=== PATIENT | female | born 1940 | race Two or more races ===

== ENCOUNTER 2020-12-21 17:58 | Emergency (ER) | payer MEDICARE ==
[~2020-12-21] VITALS: Ht 162.6 cm; Wt 77.7 kg
[2020-12-21] MEDS ORDERED: LIDOcaine 5% patch TP ONE (21:10)
[2020-12-21] MEDS ORDERED: ketorolac trometh inj. 60 MG/2 ML VIAL IM ONE (21:10)
[2020-12-21] MEDS ORDERED: bisacodyl 5mg tablet.DR PO ONE (21:15)
[2020-12-21 21:18] LABS: CLARITY,URINE SLIGHTLY CLOUDY (Clear); COLOR,URINE YELLOW (Yellow); GLUCOSE, URINE NEGATIVE (Neg); KETONES,URINE TRACE mg/dl (Neg); LEUKOCYTE ESTERASE ,URINE NEGATIVE (Neg); NITRITES, URINE NEGATIVE (Neg); OCCULT BLOOD,URINE NEGATIVE (Neg); PROTEIN,URINE NEGATIVE (Neg); UROBILINOGEN,URINE 0.2 E.U/dL (0.2-1.0)
[2020-12-21 21:19] LABS: UA COLLECTION TYPE CLN CATCH MIDSTREAM
[2020-12-21] MEDS ORDERED: acetaminophen 325mg tablet PO ONE (21:30)
[2020-12-21 21:34] LABS: BACTERIA,URINE NONE SEEN /HPF (Neg); RBC,URINE 0-2 /HPF (0-2); SQUAMOUS EPITHELIAL CELL,UR FEW /LPF (FEW); WBC,URINE 0-4 /HPF (0-4)
[2020-12-21] MEDS ORDERED: LIDO700A32 TOP (21:36)
[2020-12-21] MEDS ORDERED: ACET-1025 PO (21:36)
[2020-12-21] MEDS ORDERED: POLY119P2 PO (21:42)
[2020-12-21] MEDS ORDERED: BISA-78 PO (21:42)
[2020-12-21 22:13] VITALS: BP 155/72
== END 2020-12-21 22:15 | disposition home or self-care (01) ==
LOC: ER 17:59
DX: M54.89 Other dorsalgia (principal); K59.00 Constipation, unspecified; Z88.6 Allergy status to analgesic agent; Z88.8 Allergy status to other drugs, medicaments and biological substances; Z79.899 Other long term (current) drug therapy
CPT/HCPCS: 74019; 81001; 96372; 99284; J1885

== ENCOUNTER 2021-02-18 09:01 | Inpatient (IN) | payer MEDICARE ==
[2021-02-18] VITALS (21 sets, daily range): BP systolic 82–141; BP diastolic 37–101
[~2021-02-18] VITALS: Ht 152.4 cm; Wt 77.3 kg
[~2021-02-18 09:01] MED LIST: BISA-78 PO; LIDO700A32 TOP; POLY119P2 PO
[2021-02-18] MEDS ORDERED: ondansetron/PF 4mg/2ml inj IV ONE (09:15)
[2021-02-18 09:50] LABS: BASOPHILS # (AUTO) 0.1 X10'3 (0-0.2); BASOPHILS % (AUTO) 0.8 % (0-1); EOSINOPHILS # (AUTO) 0.1 X10'3 (0-0.9); EOSINOPHILS % (AUTO) 1.2 % (0-6); HEMOGLOBIN 12.7 g/dl (12.0-16.0); LYMPHOCYTES # (AUTO) 0.7 X10'3 (1.1-4.8); LYMPHOCYTES % (AUTO) 8.5 % (21-51); MEAN CORPUSCULAR HGB CONC 33.5 g/dL (33.0-36.5); MEAN CORPUSCULAR VOLUME 95.5 FL (78-98); MEAN PLATELET VOLUME 7.6 FL (7.4-10.4); MONOCYTES # (AUTO) 0.4 X10'3 (0-0.9); MONOCYTES % (AUTO) 4.5 % (2-12); NEUTROPHILS # (AUTO) 7.4 X10'3 (1.8-7.7); PLATELET COUNT 199 X10'3 (140-440); RED BLOOD COUNT 3.98 X10'6 (4.20-5.60); WHITE BLOOD COUNT 8.7 X10'3 (4.5-11.0)
[2021-02-18 10:04] LABS: ALANINE AMINOTRANSFERASE 30 U/L (12-78); ALBUMIN 3.4 G/DL (3.4-5.0); ALBUMIN/GLOBULIN RATIO 1.1 (1.1-1.5); ALKALINE PHOSPHATASE 206 IU/L (46-116); ANION GAP 15 (8-16); ASPARTATE AMINO TRANSFERASE 26 U/L (10-37); BILIRUBIN,TOTAL 0.5 MG/DL (0.1-1.0); BLOOD UREA NITROGEN 16 MG/DL (7-18); BUN/CREATININE RATIO 21.3 (6.6-38.0); CALCIUM 8.7 MG/DL (8.5-10.1); CHLORIDE 110 MMOL/L (99-107); CREATININE 0.75 MG/DL (0.40-0.90); GLUCOSE 164 MG/DL (70-104); POTASSIUM 3.4 MMOL/L (3.5-5.1); SODIUM 147 MMOL/L (135-145); TOTAL CARBON DIOXIDE 22.5 MMOL/L (24-32); TOTAL PROTEIN 6.6 G/DL (6.4-8.2); eGFR 75 ML/MIN
--- NOTE | 2021-02-18 10:22 | NUR ---
Delay on lab. PT/PTT will take time because tube was clotted
[2021-02-18] MEDS ORDERED: morphine 4 MG/ML inj SYRINge IV ONE (11:45)
[2021-02-18] MEDS ORDERED: ketorolac trometh. 30mg/ml inj. IV ONE (12:05)
[2021-02-18] MEDS ORDERED: ketorolac tromethamine 15mg/ml inj. IV ONE (12:05)
[2021-02-18] MEDS ORDERED: mag hydrox/Alum hydrox/simeth 30ml oral suspension PO PRN (12:20)
[2021-02-18] MEDS ORDERED: magnesium hydroxide 30ml (MOM) UD suspension PO PRN (12:20)
[2021-02-18] MEDS ORDERED: ondansetron/PF 4mg/2ml inj IV PRN ×2 (12:20→13:50)
[2021-02-18] MEDS ORDERED: morphine 2 MG/ML inj. syringe IV PRN ×2 (12:20→13:50)
[2021-02-18] MEDS ORDERED: MELO-100 PO (12:23)
[2021-02-18 12:26] LABS: PARTIAL THROMBOPLASTIN TIME 24 SECONDS (22-32)
[2021-02-18 12:34] LABS: CLARITY,URINE CLEAR (Clear); COLOR,URINE YELLOW (Yellow); GLUCOSE, URINE NEGATIVE (Neg); PROTEIN,URINE TRACE mg/dl (Neg)
[2021-02-18 12:35] LABS: KETONES,URINE 40 mg/dl (Neg); LEUKOCYTE ESTERASE ,URINE NEGATIVE (Neg); NITRITES, URINE NEGATIVE (Neg); OCCULT BLOOD,URINE NEGATIVE (Neg); UROBILINOGEN,URINE 0.2 E.U/dL (0.2-1.0)
[2021-02-18] MEDS: dextrose 5%-1/2 normal saline 1,000 ML IV SCH ×2 (12:35→22:17)
[2021-02-18 12:40] LABS: BACTERIA,URINE 4+ /HPF (Neg); MUCUS STRANDS NONE SEEN /LPF (Neg); RBC,URINE 0-2 /HPF (0-2); SQUAMOUS EPITHELIAL CELL,UR FEW /LPF (FEW); UA COLLECTION TYPE NON-SPECIFIED; WBC,URINE 0-4 /HPF (0-4)
--- NOTE | 2021-02-18 12:50 | NUR ---
pt repositioned and towels folded and placed under rigtht hip and leg. pt resting in bed.
[2021-02-18] MEDS ORDERED: ringers solution, lacted 1,000 ML IV SCH (13:50)
[2021-02-18] MEDS ORDERED: proCHLORperazine 10 MG/2 ml inj IV PRN (13:50)
[2021-02-18] MEDS ORDERED: meperidine/PF 25mg/ml syringe IV PRN ×3 (13:50)
[2021-02-18] MEDS ORDERED: morphine 4 MG/ML inj SYRINge IV PRN (13:50)
[2021-02-18] MEDS ORDERED: fentaNYL/PF 50MCG/1 ML 2ML syringe ONE (14:07)
[2021-02-18] MEDS ORDERED: midazolam 1 mg/ML 2ml injection ONE (14:07)
[2021-02-18] MEDS ORDERED: propofol inj 20 ML IV ONE (14:27)
[2021-02-18] MEDS ORDERED: ceFAZolin 1000mg inj ONE ×2 (14:33)
--- NOTE | 2021-02-18 15:36 | NUR ---
Received from OR via , accompanied by Anesthesiologist DR CHUNG and report given by Anesthesiolgist. PT PRESENTS WITH 20G LEFT HAND, DRESSING ON R HIP ISLAND DRESSING DRY AND INTACT. VSS. Addendum: 02/18/21 at 1550 by Madeline Taylor RN, RN Amended: Links added.
--- NOTE | 2021-02-18 16:46 | NUR ---
REPORT CALLLED TO GLENN OKEEFE. PT TAKEN TO ROOM 358B ON HOSPITAL BED. VSDanisha. GLENN OKEEFE AT BEDSIDE TO FRANCISCO PT. BED IN LOW LOCKED POSITION , CALL LIGHT PROVIDED FOR PT. PT BELONGINGS 1 BAG WITH PT TO ROOM 358B. Addendum: 02/18/21 at 1702 by Madeline Taylor RN, RN Amended: Links added.
--- NOTE | 2021-02-18 17:00 | NUR ---
Patient in room [facility]. I have received report from joya OKEEFE and had the opportunity to ask questions and assume patient care.
--- NOTE | 2021-02-18 17:14 | NUR ---
PAGER ID: [phone] MESSAGE: [phone] b Sarah, what type of fluids do you want for the pt? Also PT K is 3.4 do you want to replace it ? katty [id number]
--- NOTE | 2021-02-18 17:15 | NUR ---
Page Sent PAGER ID: [phone] MESSAGE: [phone] b sirena LAN does not have a diet ordered. katty thornton [phone]
--- NOTE | 2021-02-18 17:30 | NUR ---
OFFERED TO PUT PTS PRUITT $203 IN SAFE. PT WANTED MONEY TO REMAIN IN HER WALLET IN THE CLOSET.
--- NOTE | 2021-02-18 17:50 | NUR ---
Page Sent PAGER ID: [phone] MESSAGE: [phone] JEANNE LAN STATED SHE WANTS TO BE A DNR, THERE IS A NOTE IN HER CHART FROM [facility]. THANKS SHAGGY
--- NOTE | 2021-02-18 18:35 | NUR ---
Problems reprioritized. Patient report given, questions answered & plan of care reviewed with MICHELLE OKEEFE.
--- NOTE | 2021-02-18 18:51 | NUR ---
I have received report from SARY Hernández and had the opportunity to ask questions and assume patient care.
[2021-02-18] MEDS: docusate sod 100mg capsule PO SCH (19:57)
[2021-02-18] MEDS ORDERED: potassium Cl 40MEQ/1/2NS 520ml 520 ML IV PRN (21:45)
[2021-02-18] MEDS ORDERED: potassium Cl 20 mEq SR tablet PO PRN (21:45)
[2021-02-18] MEDS ORDERED: magnesium 4gm in 100ml NS 100 ML IV PRN (21:45)
[2021-02-18] MEDS ORDERED: magnesium Cl slow-release 64mg tablet PO PRN (21:45)
[2021-02-18] MEDS: traMADol 50MG tablet PO PRN (23:14)
[2021-02-19] VITALS: BP 128/66
[2021-02-19] MEDS: ceFAZolin/D5W- 1GM premix 50 ML IV SCH ×4 (01:11→23:23)
[2021-02-19 04:39] VITALS: BP 136/58
[2021-02-19] MEDS: traMADol 50MG tablet PO PRN (05:03)
--- NOTE | 2021-02-19 06:42 | NUR ---
Problems reprioritized. Patient report given, questions answered & plan of care reviewed with SARY Reyna.
--- NOTE | 2021-02-19 06:46 | NUR ---
Patient in room [facility]. I have received report from Reza OKEEFE and had the opportunity to ask questions and assume patient care.
[2021-02-19 07:11] LABS: BASOPHILS % (AUTO) 0.4 % (0-1); EOSINOPHILS # (AUTO) 0.1 X10'3 (0-0.9); HEMATOCRIT 28.5 % (35.0-45.0); HEMOGLOBIN 9.8 g/dl (12.0-16.0); LYMPHOCYTES # (AUTO) 0.6 X10'3 (1.1-4.8); LYMPHOCYTES % (AUTO) 10.5 % (21-51); MEAN CORPUSCULAR HEMOGLOBIN 32.7 PG (27.0-31.0); MEAN CORPUSCULAR HGB CONC 34.5 g/dL (33.0-36.5); MEAN CORPUSCULAR VOLUME 94.7 FL (78-98); MEAN PLATELET VOLUME 7.7 FL (7.4-10.4); MONOCYTES # (AUTO) 0.4 X10'3 (0-0.9); MONOCYTES % (AUTO) 7.4 % (2-12); NEUTROPHILS # (AUTO) 4.5 X10'3 (1.8-7.7); NEUTROPHILS % (AUTO) 80.7 % (42-75); PLATELET COUNT 164 X10'3 (140-440); RED BLOOD COUNT 3.01 X10'6 (4.20-5.60); WHITE BLOOD COUNT 5.5 X10'3 (4.5-11.0)
[2021-02-19 07:25] LABS: ALBUMIN 2.6 G/DL (3.4-5.0); ANION GAP 7 (8-16); BLOOD UREA NITROGEN 8 MG/DL (7-18); BUN/CREATININE RATIO 13.6 (6.6-38.0); CHLORIDE 107 MMOL/L (99-107); CREATININE 0.59 MG/DL (0.40-0.90); GLUCOSE 156 MG/DL (70-104); MAGNESIUM 1.9 MG/DL (1.5-2.4); POTASSIUM 3.3 MMOL/L (3.5-5.1); SODIUM 137 MMOL/L (135-145); TOTAL CARBON DIOXIDE 23.5 MMOL/L (24-32); eGFR > 90 ML/MIN
[2021-02-19 08:00] VITALS: BP 133/61
[2021-02-19] MEDS: K and/or MAG REPLACEMENT MC SCH ×2 (08:00→20:49)
[2021-02-19] MEDS: potassium Cl 20 mEq SR tablet PO PRN ×2 (08:57→20:48)
[2021-02-19] MEDS: docusate sod 100mg capsule PO SCH ×2 (08:57→20:49)
[2021-02-19] MEDS: dextrose 5%-1/2 normal saline 1,000 ML IV SCH ×2 (09:04→20:37)
[2021-02-19 11:00] VITALS: BP 160/69
[2021-02-19] MEDS ORDERED: proCHLORperazine 10 MG/2 ml inj IV PRN (11:00)
--- NOTE | 2021-02-19 12:02 | NUR ---
PAGER ID: [phone] MESSAGE: Axel Surg [id number] re: April Smith Patient wants to have code status changed to DNR and would you be okay if we added order for hugo from ER, we don't have one. Thanks
--- NOTE | 2021-02-19 15:56 | NUR ---
PAGER ID: [phone] MESSAGE: Axel Surg [phone] re: April Smith Patient wants to have code status changed to DNR and would you be okay if we added order for hugo from ER, we don't have one. Thanks
--- NOTE | 2021-02-19 18:19 | NUR ---
Problems reprioritized. Patient report given, questions answered & plan of care reviewed with Lilia OKEEFE.
[2021-02-19 18:30] VITALS: BP_SYST 113; BP_SYST 136; BP_DIAS 68; BP_DIAS 87
--- NOTE | 2021-02-19 19:38 | NUR ---
Patient in room [facility]. I have received report from Axel OKEEFE and had the opportunity to ask questions and assume patient care.
[2021-02-20] VITALS: BP 166/65
--- NOTE | 2021-02-20 04:07 | NUR ---
Patient has c/o pain with repositioning, but does not want to take any pain medication for it, not even the ultram.
[2021-02-20] MEDS: dextrose 5%-1/2 normal saline 1,000 ML IV SCH (04:57)
[2021-02-20 06:19] LABS: BASOPHILS % (AUTO) 0.6 % (0-1); EOSINOPHILS # (AUTO) 0.2 X10'3 (0-0.9); EOSINOPHILS % (AUTO) 3.1 % (0-6); HEMATOCRIT 27.7 % (35.0-45.0); HEMOGLOBIN 9.5 g/dl (12.0-16.0); LYMPHOCYTES # (AUTO) 0.7 X10'3 (1.1-4.8); LYMPHOCYTES % (AUTO) 14.3 % (21-51); MEAN CORPUSCULAR HEMOGLOBIN 32.4 PG (27.0-31.0); MEAN CORPUSCULAR HGB CONC 34.3 g/dL (33.0-36.5); MEAN CORPUSCULAR VOLUME 94.7 FL (78-98); MEAN PLATELET VOLUME 7.8 FL (7.4-10.4); MONOCYTES # (AUTO) 0.7 X10'3 (0-0.9); MONOCYTES % (AUTO) 12.8 % (2-12); NEUTROPHILS # (AUTO) 3.6 X10'3 (1.8-7.7); NEUTROPHILS % (AUTO) 69.2 % (42-75); PLATELET COUNT 168 X10'3 (140-440); RED BLOOD COUNT 2.92 X10'6 (4.20-5.60); RED CELL DISTRIBUTION WIDTH 13.7 % (11.5-14.5); WHITE BLOOD COUNT 5.2 X10'3 (4.5-11.0)
[2021-02-20 06:21] LABS: ALBUMIN 2.5 G/DL (3.4-5.0); ANION GAP 4 (8-16); BLOOD UREA NITROGEN 4 MG/DL (7-18); BUN/CREATININE RATIO 6.5 (6.6-38.0); CALCIUM 8.2 MG/DL (8.5-10.1); CHLORIDE 111 MMOL/L (99-107); CREATININE 0.62 MG/DL (0.40-0.90); GLUCOSE 114 MG/DL (70-104); POTASSIUM 3.4 MMOL/L (3.5-5.1); SODIUM 141 MMOL/L (135-145); TOTAL CARBON DIOXIDE 26.3 MMOL/L (24-32); eGFR > 90 ML/MIN
--- NOTE | 2021-02-20 06:59 | NUR ---
Problems reprioritized. Patient report given, questions answered & plan of care reviewed with Axel RN.
[2021-02-20] MEDS: docusate sod 100mg capsule PO SCH (07:46)
[2021-02-20] MEDS: K and/or MAG REPLACEMENT MC SCH (08:00)
[2021-02-20 08:56] VITALS: BP 166/74
[2021-02-20] MEDS: potassium Cl 20 mEq SR tablet PO PRN (09:43)
[2021-02-20 11:45] VITALS: BP 158/89
[2021-02-20] MEDS: traMADol 50MG tablet PO PRN (11:50)
--- NOTE | 2021-02-20 12:51 | NUR ---
Patient discharged to the a rehab facility and report was called at that time. Patient left with all belongings at this time.
== END 2021-02-20 12:00 | DRG 481 ==
LOC: ER 09:01 → ED HOLD 12:19 → SUR 3N 15:16
PROVIDERS: ADMIT Internal Medicine; ATTEND Internal Medicine
PROC: 0QS606Z Reposition Right Upper Femur with Intramedullary Internal Fixation Device, Open Approach (ICD-10-PCS; principal; 2021-02-18 14:01)
DX: M80.851A Other osteoporosis with current pathological fracture, right femur, initial encounter for fracture (principal); D62 Acute posthemorrhagic anemia; E66.9 Obesity, unspecified; Z20.822 Contact with and (suspected) exposure to COVID-19; W06.XXXA Fall from bed, initial encounter; E87.6 Hypokalemia; M19.90 Unspecified osteoarthritis, unspecified site; Z68.33 Body mass index [BMI] 33.0-33.9, adult; Y93.89 Activity, other specified; Y92.098 Other place in other non-institutional residence as the place of occurrence of the external cause; Y99.8 Other external cause status; Z88.5 Allergy status to narcotic agent; Z79.899 Other long term (current) drug therapy
CPT/HCPCS: 36415; 71045; 73502; 76000; 80048; 80053; 81001; 83735; 83880; 85025; 85610; 85730; 86885; 86900; 86901; 87077; 87081; 87088; 87186; 87635; 93005; 97116; 97162; 97530; 99285; A7000; C1713; C9803; G0378; J0690; J0780; J1885; J2250; J2405; J2704; J3010; J7120